=== PATIENT | female | born 1970 | race Caucasian/White ===

== ENCOUNTER 2023-07-02 08:37 | Emergency (ER) | payer BC ==
[~2023-07-02] VITALS: Ht 157.5 cm; Wt 86.2 kg
[2023-07-02 08:40] VITALS: BP_SYST 144; PULSE 68; RESP 17; TEMP 97.8; O2SAT 99
[2023-07-02 09:11] LABS: BILIRUBIN,URINE NEGATIVE (NEGATIVE); BLOOD, URINE 1+ (NEGATIVE); CLARITY/URINE CLEAR (CLEAR); COLOR,URINE YELLOW (YELLOW); GLUCOSE,URINE NEGATIVE (NEGATIVE); KETONES,URINE NEGATIVE (NEGATIVE); LEUKOCYTE ESTERASE ,URINE NEGATIVE (NEGATIVE); NITRITE, URINE NEGATIVE (NEGATIVE); PROTEIN URINE NEGATIVE (NEGATIVE); UROBILINOGEN,URINE 0.2 (0.2-1.0)
[2023-07-02] MEDS: KETOROLAC TROMETHAMINE 60 MG/2 ML VIAL IM ONE (09:16)
[2023-07-02 09:31] LABS: BACTERIA,URINE RARE /HPF (None Seen); WBC,URINE 0-3 /HPF (0-3)
[2023-07-02] MEDS ORDERED: NAPR-688 PO (09:55)
[2023-07-02] MEDS ORDERED: NITR-85 PO (09:55)
[2023-07-02 10:08] VITALS: BP_SYST 147; PULSE 74; RESP 18; TEMP 97.6; O2SAT 97
== END 2023-07-02 10:10 | disposition home or self-care (01) ==
LOC: SED 08:37
DX: N39.0 Urinary tract infection, site not specified (principal); N20.0 Calculus of kidney; Z79.899 Other long term (current) drug therapy
CPT/HCPCS: 99284; 81001; 74018; 96372; J1885; 81000; 81015